=== PATIENT | male | born 1990 | race Caucasian/White ===

== ENCOUNTER 2017-02-03 21:47 | Emergency (ER) | payer OTHER ==
[~2017-02-03] VITALS: Ht 172.7 cm; Wt 79.5 kg
[~2017-02-03 21:47] MED LIST: ACET-1256 PO; IBUP-1050 PO; ULT50 PO
[2017-02-03 21:50] VITALS: TEMP 36.7; Ht 172.7 cm; Wt 79.5 kg
[2017-02-03] MEDS ORDERED: IMT50 PO (22:22)
--- NOTE | 2017-02-03 22:28 | DIAGNOSTIC IMAGING REPORT ---
LEFT ANKLE 3 VIEWS HISTORY: Left ankle PAIN COMPARISON: None. FINDINGS: There is no fracture or dislocation. Soft tissues are unremarkable. No radiopaque foreign bodies. IMPRESSION: No fractures. Electronically signed by: Morro Flores M.D. 02/03/2017 10:26 PM Dictated Date/Time: 02/03/2017 10:23 PM
--- NOTE | 2017-02-03 23:00 | DIAGNOSTIC IMAGING REPORT ---
LEFT HEEL 2 VIEWS HISTORY: Left heel pain COMPARISON: None. FINDINGS: There is no fracture or dislocation. Soft tissues are unremarkable. No radiopaque foreign bodies. IMPRESSION: No fractures. Electronically signed by: Morro Flores M.D. 02/03/2017 10:59 PM Dictated Date/Time: 02/03/2017 10:58 PM
[2017-02-03] MEDS ORDERED: TRAMADOL HCL 50 MG HOME PACK PO ONE (23:30)
[2017-02-03 23:35] VITALS: BP 133/74; PULSE 78; O2SAT 98
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
== END 2017-02-03 23:45 | disposition home or self-care (01) ==
LOC: C.EDB 21:48 → C.EDD 23:45
DX: M79.672 Pain in left foot (principal); M54.9 Dorsalgia, unspecified; G89.29 Other chronic pain; F17.200 Nicotine dependence, unspecified, uncomplicated